=== PATIENT | male | born 1960 | race Caucasian/White ===

== ENCOUNTER 2022-12-19 22:23 | Emergency (ER) | payer MEDICAID ==
[~2022-12-19] VITALS: Ht 175.3 cm; Wt 92.0 kg
[2022-12-19 22:31] VITALS: BP 134/89
[2022-12-20] MEDS ORDERED: TETANUS, DIPHTHERIA, PERTUSSIS VAC/PF 0.5ML (>10YR OLD) IM ONE (01:30)
[2022-12-20] MEDS ORDERED: BACITRACIN ZINC OINT UDPKT TOP ONE (01:30)
== END 2022-12-20 04:12 | disposition home or self-care (01) ==
LOC: ER 22:23
DX: S01.411A Laceration without foreign body of right cheek and temporomandibular area, initial encounter (principal); W22.8XXA Striking against or struck by other objects, initial encounter; Y93.89 Activity, other specified; Y92.89 Other specified places as the place of occurrence of the external cause; Y99.8 Other external cause status; I10 Essential (primary) hypertension; I25.2 Old myocardial infarction
CPT/HCPCS: 12011; 90471; 90715; 99283; Z7610